=== PATIENT | female | born 1955 | race African-American/Black ===

== ENCOUNTER 2017-11-19 14:21 | Outpatient (CLI) | payer SELFPAY ==
[~2017-11-19 14:21] MED LIST: Sodium Chloride 0.9% 15 ML NEB ONE
== END 2017-11-19 14:22 | disposition home or self-care (01) ==
LOC: WCC 14:21
PROVIDERS: ATTEND Family Medicine
DX: T81.89XD Other complications of procedures, not elsewhere classified, subsequent encounter (principal)
CPT/HCPCS: 97605; A4218

== ENCOUNTER 2017-11-22 14:52 | Outpatient (CLI) | payer OTHER, SELFPAY ==
[~2017-11-22 14:52] MED LIST changes: +Lidocaine 2% Jelly 5 ML TUBE ONE
== END 2017-11-22 14:53 | disposition home or self-care (01) ==
LOC: WCC 14:52
PROVIDERS: ATTEND Family Medicine
DX: T81.89XD Other complications of procedures, not elsewhere classified, subsequent encounter (principal)
CPT/HCPCS: 97606; A4218

== ENCOUNTER 2017-11-26 14:12 | Outpatient (CLI) | payer SELFPAY ==
[2017-11-27] MEDS ORDERED: Sodium Chloride 0.9% 15 ML NEB ONE (09:00)
[2017-11-27] MEDS ORDERED: Lidocaine 4% Topical Sol 50 ML BOT ONE (09:00)
== END 2017-11-26 14:13 | disposition home or self-care (01) ==
LOC: WCC 14:12
PROVIDERS: ATTEND Family Medicine
DX: T81.89XD Other complications of procedures, not elsewhere classified, subsequent encounter (principal)
CPT/HCPCS: 36416